=== PATIENT | male | born 1990 | race African-American/Black ===

== ENCOUNTER 2021-07-09 08:16 | Emergency (ER) | payer SELFPAY ==
[2021-07-09] MEDS ORDERED: Cyclobenzaprine 10 MG TAB ONE (09:48)
== END 2021-07-09 10:35 | disposition home or self-care (01) ==
LOC: ERS 08:16
DX: S16.1XXA Strain of muscle, fascia and tendon at neck level, initial encounter (principal); V43.52XA Car driver injured in collision with other type car in traffic accident, initial encounter; Y92.410 Unspecified street and highway as the place of occurrence of the external cause
CPT/HCPCS: 72040